=== PATIENT | female | born 1970 | race Hispanic/Latino ===

== ENCOUNTER 2017-11-19 17:28 | Emergency (ER) | payer SELFPAY ==
[2017-11-19 18:26] LABS: Absolute Lymphocytes (CBC) 1.3 K/uL (0.7-4.9); Absolute Monocytes 0.5 K/uL (0.1-1.3); Absolute Neutrophil 4.5 K/uL (1.8-8.0); Basophils % 0.9 % (0-1.3); Eosinophils % 1.1 % (0-4.4); Hematocrit 21.4 % (36.0-45.0); Lymphocytes % 20.6 % (15.3-44.8); MCH 20.8 pg (27.0-35.0); MCV 68.2 fL (80-100); MPV 9.1 fL (7.6-11.3); Monocytes % 7.5 % (3.3-12.3); RBC Red Blood Cell Count 3.14 M/uL (3.86-4.86)
[2017-11-19 18:27] LABS: Bicarbonate 23 mEq/L (21-31); Glucose Level 125 mg/dL (65-120); Potassium 3.3 mEq/L (3.6-5.0); Sodium Level 135 mEq/L (135-145)
[2017-11-19 18:28] LABS: BUN Blood Urea Nitrogen 14 mg/dL (6-20)
[2017-11-19 19:11] LABS: Urine Blood 2+ (NEG); Urine Glucose NEGATIVE (NEG); Urine Protein NEGATIVE (NEG); Urine Specific Gravity 1.025 (1.005-1.030)
[2017-11-19] MEDS ORDERED: ONDANSETRON 4 MG/2 ML VIAL ONE (19:12)
[2017-11-19] MEDS ORDERED: DIPHENHYDRAMINE 50 MG/ML VIAL ONE (19:12)
[2017-11-19] MEDS ORDERED: HYDROCORTISONE SUC 100 MG INJ ONE (19:12)
[2017-11-19] MEDS ORDERED: ACETAMINOPHEN 325 MG TABLET ONE (19:12)
[2017-11-19 19:23] LABS: Blood Morphology Comment NOTED (NOT SEEN); Hypochromasia 1+; Platelet Estimate ADEQ; Polychromasia 1+; Urine White Blood Cell Casts OK
[2017-11-19 19:24] LABS: Ovalocytes 1+
[2017-11-19] MEDS ORDERED: NA CHLORIDE 0.9% 250 ML ONE (19:27)
--- NOTE | 2017-11-19 20:09 | RAD REPORT ---
EXAM DESCRIPTION: US - Transvaginal Study Probe - 11/19/2017 7:40 pm CLINICAL HISTORY: Abdominal pain with vaginal bleeding COMPARISON: none FINDINGS: The uterus measures 8 x 5 x 5cm. A fibroid is not seen. The endometrial stripe measures 2. 4 centimeters. A 3.6 centimeter left ovarian cyst is present. The right ovary was not seen. . No significant free fluid is seen. IMPRESSION: Thickened endometrium. A followup pelvic ultrasound in a couple months is recommended to assess stability/ resolution 3.6 centimeter left ovarian cyst. This also can be monitored on the follow-up exam
--- NOTE | 2017-11-20 01:36 | EDPHYS ---
Physician Documentation [facility] Name: Aster Swain Age: 46 yrs Sex: Female : 1970 Arrival Date: 11/19/2017 Time: 17:29 Bed 5 Private MD: ED Physician Angel Bonilla HPI: 11/19 19:59 This 46 yrs old Female presents to ER via Ambulatory with complaints of jr8 Weakness, Dizziness, vaginal bleeding. 19:59 The patient presents with vaginal bleeding that is moderate, with clots. Onset: The jr8 symptoms/episode began/occurred gradually, 3 week(s) ago. Modifying factors: The symptoms are alleviated by nothing, the symptoms are aggravated by nothing. Associated signs and symptoms: Pertinent positives: weakness, dizziness, PITTS. Severity of symptoms: At their worst the symptoms were moderate, in the emergency department the symptoms are unchanged. The patient has not experienced similar symptoms in the past. The patient has been recently seen by a physician:. Recently saw PCP and was started on control. Stated that bleeding has decreased since then but still continues . 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 - Social history:: Smoking status: Patient/guardian denies using tobacco. ROS: 19:59 Eyes: Negative for injury, pain, redness, and discharge, ENT: Negative for injury, jr8 pain, and discharge, Neck: Negative for injury, pain, and swelling, Cardiovascular: Negative for chest pain, palpitations, and edema, Abdomen/GI: Negative for abdominal pain, nausea, vomiting, diarrhea, and constipation, Back: Negative for injury and pain, MS/Extremity: Negative for injury and deformity, Skin: Negative for injury, rash, and discoloration, Neuro: Negative for headache, weakness, numbness, tingling, and seizure. 19:59 Constitutional: Positive for fatigue. 19:59 Respiratory: Positive for dyspnea on exertion, Negative for cough, sputum production, wheezing. 19:59 : Positive for vaginal bleeding, menstrual abnormality. Exam: 19:59 Head/Face: Normocephalic, atraumatic. ENT: Nares patent. No nasal discharge, no jr8 septal abnormalities noted. Tympanic membranes are normal and external auditory canals are clear. Oropharynx with no redness, swelling, or masses, exudates, or evidence of obstruction, uvula midline. Mucous membranes moist. Neck: Trachea midline, no thyromegaly or masses palpated, and no cervical lymphadenopathy. Supple, full range of motion without nuchal rigidity, or vertebral point tenderness. No Meningismus. Cardiovascular: Regular rate and rhythm with a normal S1 and S2. No gallops, murmurs, or rubs. Normal PMI, no JVD. No pulse deficits. Respiratory: Lungs have equal breath sounds bilaterally, clear to auscultation and percussion. No rales, rhonchi or wheezes noted. No increased work of breathing, no retractions or nasal flaring. Abdomen/GI: Soft, non-tender, with normal bowel sounds. No distension or tympany. No guarding or rebound. No evidence of tenderness throughout. Back: No spinal tenderness. No costovertebral tenderness. Full range of motion. MS/ Extremity: Pulses equal, no cyanosis. Neurovascular intact. Full, normal range of motion. Neuro: Awake and alert, GCS 15, oriented to person, place, time, and situation. Cranial nerves II-XII grossly intact. Motor strength 5/5 in all extremities. Sensory grossly intact. Cerebellar exam normal. Normal gait. 19:59 Eyes: Periorbital structures: appear normal, Pupils: equal, round, and reactive to light and accomodation, Extraocular movements: intact throughout, Conjunctiva: pale, bilaterally, Sclera: no appreciated abnormality, Anterior chamber: normal, Lids and lashes: appear normal. 19:59 Skin: Appearance: Color: pale, Temperature: cool, Moisture: normal moisture, petechiae, not noted. Vital Signs: 17:41 BP 117 / 67; Pulse 76; Resp 18; Temp 97.8(TE); Pulse Ox 99% on R/A; Weight 66.22 kg; hj Height 5 ft. 3 in. (160.02 cm); Pain 7/10; 18:26 BP 123 / 73; Pulse 74; Resp 16; Pulse Ox 100% on R/A; tw2 20:09 BP 121 / 69; Pulse 75; Resp 16; Pulse Ox 100% on R/A; aa1 20:48 BP 121 / 71; Pulse 74; Resp 18; Pulse Ox 99% on R/A; aa1 22:00 BP 112 / 64; Pulse 79; Resp 18; Pulse Ox 100% on R/A; Pain 0/10; mg2 23:00 BP 111 / 62; Pulse 74; Resp 16; Pulse Ox 100% on R/A; aa1 05 00:53 BP 113 / 63; Pulse 65; Resp 18; Pulse Ox 100% on R/A; tl2 02:03 BP 106 / 65; Pulse 65; Resp 16; Pulse Ox 100% on R/A; Pain 0/10; mg2 11/19 17:41 Body Mass Index 25.86 (66.22 kg, 160.02 cm) hj MDM: 11/19 17:45 Patient medically screened. jr8 11/20 01:33 Data reviewed: vital signs, nurses notes, lab test result(s), and as a result, I will jr8 discharge patient. Data interpreted: Pulse oximetry: on room air is 100 %. Interpretation: normal. Counseling: I had a detailed discussion with the patient and/or guardian regarding: the historical points, exam findings, and any diagnostic results supporting the discharge/admit diagnosis, lab results, radiology results, the need for outpatient follow up, an OB/Gyne specialist, to return to the emergency department if symptoms worsen or persist or if there are any questions or concerns that arise at home. Response to treatment: the patient's symptoms have markedly improved after treatment. ED course: Patients Hemoglobin to reasonable level now. Patient feeling much better. Bleeding has slowed down. Has appointment with OB tomorrow. To come back if feeling worse again . 11/19 17:54 Order name: CBC with Diff; Complete Time: 19:56 [facility] 11/19 17:54 Order name: Basic Metabolic Panel; Complete Time: 18:30 [facility] 11/19 17:54 Order name: T\T\S [facility] 11/19 18:23 Order name: Urine Dipstick--Ancillary (enter results); Complete Time: 19:13 ag 11/19 18:23 Order name: Urine --Ancillary (enter results); Complete Time: 19:13 ag 11/19 18:37 Order name: CBC Smear Scan; Complete Time: 19:56 [facility] 11/19 17:54 Order name: Urine Test (obtain specimen); Complete Time: 18:23 [facility] 11/19 18:42 Order name: Bb Add On ag 11/19 18:52 Order name: ABO/RH no charge; Complete Time: 18:59 [facility] 11/19 18:59 Order name: Packed RBC Leukored -1 [facility] 11/19 19:11 Order name: US Transvaginal Study (Probe); Complete Time: 20:20 [facility] 11/20 00:24 Order name: Hemoglobin: draw at 0100; Complete Time: 01:38 tl2 11/19 17:54 Order name: Urine Dipstick-Ancillary (obtain specimen); Complete Time: 18:23 jr8 Administered Medications: 11/19 21:09 Not Given (Patient Refused): Zofran 4 mg IVP once; over 2 minutes tl2 Disposition: 11/20/17 01:35 Discharged to Home. Impression: Acute anemia, Abnormal uterine and vaginal bleeding, unspecified, Menorrhagia . - Condition is Stable. - Discharge Instructions: Abnormal Uterine Bleeding, Iron Deficiency Anemia, Adult. - Medication Reconciliation Form, Thank You Letter, Antibiotic Education, Prescription Opioid Use form. - Follow up: Private Physician; When: Today; Reason: Recheck today's complaints, Continuance of care, Re-evaluation by your physician. - Problem is new. - Symptoms have improved. Addendum: 12/05/2017 21:54 Co-signature as Attending Physician, Angel Bonilla MD. g s Signatures: Dispatcher [employer] [facility] Mariano Lane PA PA jr8 Matt Corbin RN RN Jaimie Hawkins RN RN tw2 Angel Bonilla MD MD Saul Arenas RN RN [facility] Amy Cintron RN tl2 Corrections: (The following items were deleted from the chart) 11/19 19:15 19:00 Transvaginal Ob+US.RAD.BRZ ordered. [facility] 11/20 01:36 01:35 11/20/2017 01:35 Discharged to Home. Impression: Acute anemia; Abnormal uterine jr8 and vaginal bleeding, unspecified. Condition is Stable. Forms are Medication Reconciliation Form, Thank You Letter, Antibiotic Education, Prescription Opioid Use. Follow up: Private Physician; When: Today; Reason: Recheck today's complaints, Continuance of care, Re-evaluation by your physician. Problem is new. Symptoms have improved. jr8 02:05 01:36 11/20/2017 01:35 Discharged to Home. Impression: Acute anemia; Abnormal uterine mg2 and vaginal bleeding, unspecified; Menorrhagia . Condition is Stable. Forms are Medication Reconciliation Form, Thank You Letter, Antibiotic Education, Prescription Opioid Use. Follow up: Private Physician; When: Today; Reason: Recheck today's complaints, Continuance of care, Re-evaluation by your physician. Problem is new. Symptoms have improved. jr8
--- NOTE | 2017-11-20 01:36 | ER ---
Nurse's Notes [facility] Name: Aster Swain Age: 46 yrs Sex: Female : 1970 Arrival Date: 11/19/2017 Time: 17:29 Bed 5 Private MD: Diagnosis: Acute anemia;Abnormal uterine and vaginal bleeding, unspecified;Menorrhagia Presentation: 11/19 17:38 Presenting complaint: Patient states: i fell dizzy starting 2 weeks ago; i had my hj period for 3 weeks and still heavy; denies nausea; reports vomiting; reports headache;. Transition of care: patient was not received from another setting of care. Onset of symptoms was November 19, 2017. Initial Sepsis Screen: Does the patient meet any 2 criteria? No. Patient's initial sepsis screen is negative. Does the patient have a suspected source of infection? No. Patient's initial sepsis screen is negative. Care prior to arrival: None. 17:38 Method Of Arrival: Ambulatory 17:38 Acuity: SEBLE 3 hj Triage Assessment: 17:40 General: Appears in no apparent distress. uncomfortable, Behavior is calm, cooperative, hj appropriate for age. Pain: Complains of pain in head. 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 - Social history:: Smoking status: Patient/guardian denies using tobacco. Screenin:22 Abuse screen: Denies threats or abuse. Nutritional screening: No deficits noted. tw2 Tuberculosis screening: No symptoms or risk factors identified. Fall Risk None identified. Assessment: 18:00 General: Appears in no apparent distress. slender, well groomed, Behavior is calm, tw2 cooperative, appropriate for age. Pain: Denies pain. Neuro: Level of Consciousness is awake, alert, obeys commands, Oriented to person, place, time, situation. Cardiovascular: Denies chest pain, shortness of breath, Heart tones S1 S2 Capillary refill < 3 seconds Patient's skin is warm and dry. Respiratory: Airway is patent Respiratory effort is even, unlabored, Respiratory pattern is regular, symmetrical, Breath sounds are clear bilaterally. GI: No signs and/or symptoms were reported involving the gastrointestinal system. Abdomen is flat, Bowel sounds present X 4 quads. : Reports vaginal bleeding that is bright red, heavy flow for 3 weeks. EENT: No signs and/or symptoms were reported regarding the EENT system. Derm: Skin is intact, is healthy with good turgor, Skin is pale. Musculoskeletal: Range of motion: intact in all extremities. 19:10 Reassessment: Pt stated she was nauseated but denied wanting medication. Medication tl2 ordered per PA. 19:20 Reassessment: Pt out to US, will sent blood slips when pt returns to room. General: tl2 Appears in no apparent distress. uncomfortable, Behavior is calm, cooperative, appropriate for age. General:. Pain: Denies pain. Neuro: Level of Consciousness is awake, alert, obeys commands, Oriented to person, place, time, situation. Neuro: Reports weakness. Cardiovascular: Denies chest pain, shortness of breath, Heart tones S1 S2 present. Respiratory: Airway is patent Respiratory effort is even, unlabored, Respiratory pattern is regular, symmetrical. : Reports vaginal bleeding that is bright red, heavy flow. Derm: Skin is intact, Skin is pale. Musculoskeletal: Range of motion: intact in all extremities. 20:17 Reassessment: blood transfusion started at 1999, see transfusion flowsheet for vitals. tl2 Pt states she is feeling fine after first 15 minutes. Encouraged to notify me if experiencing any symptoms. 21:05 Reassessment: Patient appears in no apparent distress at this time. Patient and/or tl2 family updated on plan of care and expected duration. Pain level reassessed. Patient is alert, oriented x 3, equal unlabored respirations, skin warm/dry/pink. PA states that we will infuse both units of blood, recheck H\T\H 2 hours post transfusion and evaluate for discharge. 22:48 Reassessment: Patient appears in no apparent distress at this time. Patient and/or tl2 family updated on plan of care and expected duration. Pain level reassessed. Patient is alert, oriented x 3, equal unlabored respirations, skin warm/dry/pink. Skin color is improving. 23:41 Reassessment: Patient appears in no apparent distress at this time. Patient and/or tl2 family updated on plan of care and expected duration. Pain level reassessed. Patient is alert, oriented x 3, equal unlabored respirations, skin warm/dry/pink. Will redraw CBC at 0100. Second unit completed at 2340. Patient states feeling better. 11/20 00:24 Reassessment: ambulated pt in room, pt denies dizziness and states she feels better. Pt tl2 states that pad she put on when she arrived to ER was not saturated and she reports decreased bleeding. 00:53 Reassessment: Patient appears in no apparent distress at this time. Patient and/or tl2 family updated on plan of care and expected duration. Pain level reassessed. Patient is alert, oriented x 3, equal unlabored respirations, skin warm/dry/pink. Patient states feeling better. Reassessment: awaiting Hgb level. Derm: Skin is pink, warm \T\ dry. 02:03 Reassessment: Patient appears in no apparent distress at this time. Patient and/or mg2 family updated on plan of care and expected duration. Pain level reassessed. Patient is alert, oriented x 3, equal unlabored respirations, skin warm/dry/pink. Pt verbalized understanding of discharge instructions, need for follow up with OBGYN. Pt was ambulatory out of ER with no issue Patient states feeling better. Vital Signs: 11/19 17:41 BP 117 / 67; Pulse 76; Resp 18; Temp 97.8(TE); Pulse Ox 99% on R/A; Weight 66.22 kg; hj Height 5 ft. 3 in. (160.02 cm); Pain 7/10; 18:26 BP 123 / 73; Pulse 74; Resp 16; Pulse Ox 100% on R/A; tw2 20:09 BP 121 / 69; Pulse 75; Resp 16; Pulse Ox 100% on R/A; aa1 20:48 BP 121 / 71; Pulse 74; Resp 18; Pulse Ox 99% on R/A; aa1 22:00 BP 112 / 64; Pulse 79; Resp 18; Pulse Ox 100% on R/A; Pain 0/10; mg2 23:00 BP 111 / 62; Pulse 74; Resp 16; Pulse Ox 100% on R/A; aa1 11/20 00:53 BP 113 / 63; Pulse 65; Resp 18; Pulse Ox 100% on R/A; tl2 02:03 BP 106 / 65; Pulse 65; Resp 16; Pulse Ox 100% on R/A; Pain 0/10; mg2 11/19 17:41 Body Mass Index 25.86 (66.22 kg, 160.02 cm) ED Course: 11/19 17:29 Patient arrived in ED. sb2 17:40 Triage completed. hj 17:41 Arm band placed on left wrist. hj 17:42 Placed in gown. Bed in low position. Side rails up X2. Pulse ox on. NIBP on. Warm tw2 blanket given. 17:[address] PA is PHCP. jr8 17:45 Angel Bonilla MD is Attending Physician. jr8 17:45 Jaimie Hawkins RN is Primary Nurse. tw2 18:10 No provider procedures requiring assistance completed. Inserted saline lock: 20 gauge tw2 in left antecubital area, using aseptic technique. Blood collected. 19:02 Primary Nurse role handed off by Jaimie Hawkins RN tw2 19:02 Report given to RAVINDRA Reyes. tw2 19:19 Amy Cintron RN is Primary Nurse. tl2 19:37 Ultrasound completed. cy 19:40 US Transvaginal Study (Probe) In Process Unspecified. EDMS 11/20 01:06 Hemoglobin: draw at 0100 Sent. mg2 02:03 IV discontinued, intact, bleeding controlled, No redness/swelling at site. Pressure mg2 dressing applied. Administered Medications: 11/19 21:09 Not Given (Patient Refused): Zofran 4 mg IVP once; over 2 minutes tl2 Medication: 23:42 Blood products: PRBCs X 2 units given. See transfusion record first unit started at tl2 1999 and finished at 2142. Second unit started at 2148 and finished at 2340. Outcome: 11/20 01:35 Discharge ordered by . jr8 02:03 Discharged to home ambulatory, with family. mg2 02:03 Condition: stable 02:03 Discharge instructions given to patient, Instructed on discharge instructions, follow up and referral plans. Demonstrated understanding of instructions, follow-up care. 02:05 Patient left the ED. mg2 Signatures: Dispatcher [employer] EDMO Anel Hinojosa RN RN aa1 Mariano Lane PA PA jr8 Matt Corbin RN RN Jaimie Hawkins RN RN tw2 Amy Cintron RN RN tl2 Marlen Sunshine Sheri 2 Saul Arenas RN RN mg2 Corrections: (The following items were deleted from the chart) 11/19 17:43 17:41 Pulse 76bpm; Resp 18bpm; Pulse Ox 99% RA; Temp 97.8F Temporal; 66.22 kg; Height 5 hj ft. 3 in.; BMI: 25.8; Pain 7/10; hj 23:43 20:00 Blood products: PRBCs X 1 unit given. tl2 tl2
== END 2017-11-20 02:05 | disposition home or self-care (01) ==
LOC: ER 17:28
PROC: 30233N1 Transfusion of Nonautologous Red Blood Cells into Peripheral Vein, Percutaneous Approach (ICD-10-PCS; principal; 2017-11-20)
DX: D64.9 Anemia, unspecified (principal); N92.0 Excessive and frequent menstruation with regular cycle
CPT/HCPCS: 36415; 36430; 76830; 80048; 81003; 81025; 85018; 85025; 86850; 86900; 86901; 99284; J1720; J2405; P9016

== ENCOUNTER 2017-11-21 21:54 | Emergency (ER) | payer SELFPAY ==
[2017-11-21 22:50] LABS: Absolute Lymphocytes (CBC) 2.3 K/uL (0.7-4.9); Absolute Monocytes 0.6 K/uL (0.1-1.3); Absolute Neutrophil 4.5 K/uL (1.8-8.0); Eosinophils % 1.5 % (0-4.4); Hematocrit 28.7 % (36.0-45.0); Lymphocytes % 30.3 % (15.3-44.8); MCH 23.1 pg (27.0-35.0); MCV 72.3 fL (80-100); MPV 9.1 fL (7.6-11.3); Monocytes % 7.4 % (3.3-12.3); RBC Red Blood Cell Count 3.97 M/uL (3.86-4.86)
[2017-11-21] MEDS ORDERED: DIAZEPAM 2 MG TABLET ONE (22:52)
[2017-11-21 23:07] LABS: Bicarbonate 22 mEq/L (21-31); Glucose Level 107 mg/dL (65-120); Potassium 3.5 mEq/L (3.6-5.0); Protime INR 0.95; Sodium Level 142 mEq/L (135-145)
[2017-11-21 23:13] LABS: ALT/SGPT 14 IU/L (10-60); AST/SGOT 20 IU/L (10-42); Alkaline Phosphatase 49 IU/L (42-121); BUN Blood Urea Nitrogen 12 mg/dL (6-20); Bilirubin Direct < 0.1 mg/dL (0-0.2); Bilirubin Total 0.3 mg/dL (0.3-1.2); Protein, Total 7.1 g/dL (6.0-8.3)
[2017-11-21 23:23] LABS: Anisocytosis 1+; Blood Morphology Comment NOTED (NOT SEEN); Hypochromasia 1+; Platelet Estimate ADEQ; Urine White Blood Cell Casts OK
[2017-11-21 23:24] LABS: Ovalocytes 2+
[2017-11-22 00:20] LABS: Urine Blood TRACE (NEG); Urine Glucose NEGATIVE (NEG); Urine Protein NEGATIVE (NEG); Urine Specific Gravity 1.015 (1.005-1.030); Urine pH 7.5 (5.0-7.0)
--- NOTE | 2017-11-22 01:46 | ER ---
Nurse's Notes [facility] Name: Aster Swain Age: 46 yrs Sex: Female : 1970 Arrival Date: 11/21/2017 Time: 21:55 Bed 18 Private MD: Diagnosis: Chest pain, unspecified;Hyperventilation Presentation: 11/21 22:09 Presenting complaint: Patient states: Chest pain and SOB that started today. Patient aj seen in this ER 2 days ago and given 2 units PRBC for irregular uterine bleeding. Patient given depo shot yesterday, reports bleeding has stopped. Transition of care: patient was not received from another setting of care. Onset of symptoms was November 21, 2017. Initial Sepsis Screen: Does the patient meet any 2 criteria? No. Patient's initial sepsis screen is negative. Does the patient have a suspected source of infection? No. Patient's initial sepsis screen is negative. Care prior to arrival: None. 22:09 Method Of Arrival: Wheelchair aj 22:09 Acuity: SEBLE 2 aj Triage Assessment: 22:11 General: Appears in no apparent distress. uncomfortable, Behavior is calm, cooperative, aj appropriate for age. Pain: Complains of pain in chest. Neuro: Level of Consciousness is awake, alert, obeys commands, Oriented to person, place, time, situation, Appropriate for age. Cardiovascular: Reports chest pain, shortness of breath. Respiratory: Reports shortness of breath at rest pain with respiration Airway is patent Trachea midline Respiratory effort is even, unlabored, Respiratory pattern is symmetrical, tachypnea. Derm: Skin is intact, is healthy with good turgor, Skin is pink, warm \T\ dry. normal. 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 - Family history:: not pertinent. - Social history:: Smoking status: unknown. - Hospitalizations: : No recent hospitalization is reported. Screenin:40 Abuse screen: Denies threats or abuse. Nutritional screening: No deficits noted. jd3 Tuberculosis screening: No symptoms or risk factors identified. Fall Risk IV access (20 points). Mental Status- Oriented to own ability (0 pts). Total Vasques Fall Scale indicates No Risk (0-24 pts). Assessment: 22:37 General: Appears uncomfortable, Behavior is cooperative, appropriate for age, anxious. jd3 Pain: Complains of pain in chest Pain does not radiate. Quality of pain is described as pressure, Pain began 4 hours ago. Neuro: Level of Consciousness is awake, alert, obeys commands, Oriented to person, place, time, situation. Cardiovascular: Heart tones S1 S2 present Capillary refill < 3 seconds Patient's skin is warm and dry. Rhythm is regular Chest pain is described as diffuse, quality is pressure, began 4 hours prior to arrival. Respiratory: Reports shortness of breath at rest Airway is patent Respiratory effort is even, unlabored, Respiratory pattern is regular, symmetrical, Breath sounds are clear bilaterally. GI: Abdomen is round Bowel sounds present X 4 quads. Abd is soft and non tender X 4 quads. Reports nausea. : No signs and/or symptoms were reported regarding the genitourinary system. EENT: No signs and/or symptoms were reported regarding the EENT system. Derm: Skin is intact, Skin is diaphoretic, Skin is normal, Skin temperature is warm. Musculoskeletal: Circulation, motion, and sensation intact. Range of motion: intact in all extremities. 23:40 Reassessment: Patient appears in no apparent distress at this time. Patient and/or jd3 family updated on plan of care and expected duration. Pain level reassessed. Patient is alert, oriented x 3, equal unlabored respirations, skin warm/dry/pink. pt resting in bed with eyes closed even and unlabored respirations, call light in reach, no signs of distress noted at this time. family at bedside. 11/22 00:50 Reassessment: Patient appears in no apparent distress at this time. Patient and/or jd3 family updated on plan of care and expected duration. Pain level reassessed. Patient is alert, oriented x 3, equal unlabored respirations, skin warm/dry/pink. provider at bedside discussing plan of care. Patient states feeling better. 01:33 Reassessment: Patient appears in no apparent distress at this time. Patient and/or jd3 family updated on plan of care and expected duration. Pain level reassessed. Patient is alert, oriented x 3, equal unlabored respirations, skin warm/dry/pink. Patient states feeling better. 02:33 Reassessment: Patient appears in no apparent distress at this time. Patient and/or jd3 family updated on plan of care and expected duration. Pain level reassessed. Patient is alert, oriented x 3, equal unlabored respirations, skin warm/dry/pink. Patient states feeling better. 02:40 Reassessment: Patient appears in no apparent distress at this time. Patient and/or jd3 family updated on plan of care and expected duration. Pain level reassessed. Patient is alert, oriented x 3, equal unlabored respirations, skin warm/dry/pink. pt reported understanding of discharge instructions, even and steady gait upon discharge. Vital Signs: 11/21 22:11 BP 138 / 78; Pulse 73; Resp 24; Temp 98.9; Pulse Ox 100% on R/A; Weight 66.22 kg; aj Height 5 ft. 3 in. (160.02 cm); Pain 5/10; 23:59 BP 110 / 67; Pulse 63; Resp 13 S; Pulse Ox 100% on R/A; jd3 0511 00:50 BP 109 / 64; Pulse 69; Resp 15 S; Pulse Ox 100% on R/A; jd3 01:32 BP 111 / 63; Pulse 61; Resp 16 S; Pulse Ox 100% on R/A; Pain 0/10; jd3 02:32 BP 106 / 64; Pulse 58; Resp 16 S; Pulse Ox 100% on R/A; Pain 0/10; jd3 11/21 22:11 Body Mass Index 25.86 (66.22 kg, 160.02 cm) ED Course: 11/21 21:55 Patient arrived in ED. al2 22:10 Triage completed. aj 22:11 Arm band placed on right wrist. Patient placed in an exam room. aj 22:15 Sadiq Chavez MD is Attending Physician. rn 22:25 EKG done, by ED staff, reviewed by Sadiq Chavez MD. cc 22:30 Initial lab(s) drawn, by mt, sent to lab. Inserted saline lock: 20 gauge in left cc antecubital area, using aseptic technique. Blood collected. 22:37 Bishnu Gomez RN is Primary Nurse. jd3 22:39 Patient maintains SpO2 saturation greater than 95% on room air. jd3 22:40 Patient has correct armband on for positive identification. Placed in gown. Bed in low jd3 position. Call light in reach. Side rails up X2. Adult w/ patient. 22:40 staffing consultant on. Pulse ox on. NIBP on. jd3 22:44 XRAY Chest (1 view) In Process Unspecified. EDMS 05 00:16 CT Chest For PE Angio In Process Unspecified. EDMS 02:39 No provider procedures requiring assistance completed. IV discontinued, intact, jd3 bleeding controlled, No redness/swelling at site. Pressure dressing applied. Administered Medications: 11/21 23:05 Drug: Valium 2 mg Route: PO; jd3 11/22 02:41 Follow up: Response: No adverse reaction; Marked relief of symptoms jd3 Outcome: 01:45 Discharge ordered by . rn 02:39 Discharged to home ambulatory, with family. jd3 02:39 Condition: stable 02:39 Discharge instructions given to patient, Instructed on discharge instructions, follow up and referral plans. medication usage, Demonstrated understanding of instructions, follow-up care, medications, Prescriptions given X 1. 02:41 Patient left the ED. jd3 Signatures: Dispatcher [employer] Jes Lopez RN RN aj Nieto, Roman, MD MD rn Christian, Chelsea cc Davies, Jonathon, RN RN jd3 Love, Angelica al2
--- NOTE | 2017-11-22 01:46 | EDPHYS ---
Physician Documentation [facility] Name: Aster Swain Age: 46 yrs Sex: Female : 1970 Arrival Date: 11/21/2017 Time: 21:55 Bed 18 Private MD: ED Physician Sadiq Chavez HPI: 11/21 23:37 This 46 yrs old Female presents to ER via Wheelchair with complaints of Chest rn Pain, Breathing Difficulty. 23:37 The patient or guardian reports chest pain that is located primarily in the chest rn diffusely. Onset: 2 hour(s) ago. The pain does not radiate. Associated signs and symptoms: Pertinent positives: lightheadedness, palpitations, shortness of breath. The chest pain is described as a heaviness. Duration: The patient or guardian reports multiple episodes, that are intermittent. Severity of pain: At its worst the pain was moderate in the emergency department the pain is unchanged. The patient has not experienced similar symptoms in the past. Recently transfused for anemia from vaginal bleeding, given depot shot recently, presents with 2 hours of chest pain and sob, never had this before, reports making her feel anxious. No fever/cough. . 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 - Family history:: not pertinent. - Social history:: Smoking status: unknown. - Hospitalizations: : No recent hospitalization is reported. ROS: 23:37 Constitutional: Negative for fever, chills, and weight loss, Eyes: Negative for injury, rn pain, redness, and discharge, Cardiovascular: Negative for palpitations, and edema, Respiratory: Negative for cough, wheezing Abdomen/GI: Negative for abdominal pain, nausea, vomiting, diarrhea, and constipation, MS/Extremity: Negative for injury and deformity, Skin: Negative for injury, rash, and discoloration, Neuro: Negative for headache, weakness, numbness, tingling, and seizure. Exam: 23:37 Constitutional: This is a well developed, well nourished patient who is awake, alert, rn appears anxious and hyperventilating Head/Face: Normocephalic, atraumatic. Eyes: Pupils equal round and reactive to light, extra-ocular motions intact. Lids and lashes normal. Conjunctiva and sclera are non-icteric and not injected. Cornea within normal limits. Periorbital areas with no swelling, redness, or edema. Neck: Trachea midline, no thyromegaly or masses palpated, and no cervical lymphadenopathy. Supple, full range of motion without nuchal rigidity, or vertebral point tenderness. No Meningismus. Cardiovascular: Regular rate and rhythm with a normal S1 and S2. No gallops, murmurs, or rubs. Normal PMI, no JVD. No pulse deficits. Respiratory: clear bilaterally, + mild tachypnea, no retractions Abdomen/GI: Soft, non-tender, with normal bowel sounds. No distension or tympany. No guarding or rebound. No evidence of tenderness throughout. Skin: Warm, dry with normal turgor. Normal color with no rashes, no lesions, and no evidence of cellulitis. MS/ Extremity: Pulses equal, no cyanosis. Neurovascular intact. Full, normal range of motion. Equal circumference. Neuro: Awake and alert, GCS 15, oriented to person, place, time, and situation. Cranial nerves II-XII grossly intact. Motor strength 5/5 in all extremities. Sensory grossly intact. Vital Signs: 22:11 BP 138 / 78; Pulse 73; Resp 24; Temp 98.9; Pulse Ox 100% on R/A; Weight 66.22 kg; aj Height 5 ft. 3 in. (160.02 cm); Pain 5/10; 23:59 BP 110 / 67; Pulse 63; Resp 13 S; Pulse Ox 100% on R/A; jd3 11/22 00:50 BP 109 / 64; Pulse 69; Resp 15 S; Pulse Ox 100% on R/A; jd3 01:32 BP 111 / 63; Pulse 61; Resp 16 S; Pulse Ox 100% on R/A; Pain 0/10; jd3 02:32 BP 106 / 64; Pulse 58; Resp 16 S; Pulse Ox 100% on R/A; Pain 0/10; jd3 11/21 22:11 Body Mass Index 25.86 (66.22 kg, 160.02 cm) aj MDM: 11/21 22:15 Patient medically screened. rn 11/22 01:01 ED course: Pt feels much better after valium, offered observation for chest pain rule rn out, patient prefers to go home, will repeat trop and if normal dc home, pt and state this happens about once a year, gets better, has been evaluated before and possibly anxiety. Given her emotional response, hyperventilation, and improvement with valium and lack of findings in radiologic and laboratory evaluation, very likely that it is hyperventilation/anxiety. . 01:40 Differential diagnosis: anxiety, coronary artery disease chest wall pain, rn costochondritis, gastritis, gastroesophageal reflux disease (GERD), pericarditis, pleurisy, pneumothorax, pulmonary embolus. Data reviewed: vital signs, nurses notes, lab test result(s), EKG, radiologic studies, CT scan, plain films, and as a result, I will discharge patient. Counseling: I had a detailed discussion with the patient and/or guardian regarding: the historical points, exam findings, and any diagnostic results supporting the discharge/admit diagnosis, lab results, radiology results, the need for outpatient follow up, to return to the emergency department if symptoms worsen or persist or if there are any questions or concerns that arise at home. Response to treatment: the patient's symptoms have markedly improved after treatment, and as a result, I will discharge patient. Special discussion: I discussed with the patient/guardian in detail that at this point there is no indication for admission to the hospital. It is understood, however, that if the symptoms persist or worsen the patient needs to return immediately for re-evaluation. 11/21 22:22 Order name: Basic Metabolic Panel rn 11/21 22:22 Order name: BNP; Complete Time: 00:39 rn 11/21 22:22 Order name: CBC with Diff; Complete Time: 00:39 rn 11/21 22:22 Order name: LFT's; Complete Time: 23:14 rn 11/21 22:22 Order name: Magnesium; Complete Time: 23:14 rn 11/21 22:22 Order name: PT-INR; Complete Time: 23:14 rn 11/21 22:22 Order name: Ptt, Activated; Complete Time: 23:14 rn 11/21 22:22 Order name: Troponin (emerg Dept Use Only); Complete Time: 00:39 rn 11/21 22:22 Order name: D-Dimer; Complete Time: 23:14 rn 11/21 22:23 Order name: Basic Metabolic Panel; Complete Time: 23:14 EDNC 11/21 22:55 Order name: CBC Smear Scan; Complete Time: 00:39 EDNC 11/21 23:35 Order name: Urine Dipstick--Ancillary (enter results); Complete Time: 00:39 em1 11/21 23:35 Order name: Urine --Ancillary (enter results); Complete Time: 00:39 em1 11/22 00:40 Order name: Troponin (emerg Dept Use Only) rn 11/21 22:22 Order name: Urine Test (obtain specimen); Complete Time: 23:32 rn 11/21 22:22 Order name: XRAY Chest (1 view) rn 11/21 22:22 Order name: EKG; Complete Time: 22:23 rn 11/21 22:22 Order name: Cardiac monitoring; Complete Time: 22:35 rn 11/21 22:22 Order name: EKG - Nurse/Tech; Complete Time: 22:35 rn 11/21 22:22 Order name: IV Saline Lock; Complete Time: 22:35 rn 11/21 22:22 Order name: Labs collected and sent; Complete Time: 22:35 rn 11/21 22:22 Order name: O2 Per Protocol; Complete Time: 22:35 rn 11/21 22:22 Order name: O2 Sat Monitoring; Complete Time: 22:35 rn 11/21 22:22 Order name: Urine Dipstick-Ancillary (obtain specimen); Complete Time: 23:33 rn 11/21 23:15 Order name: CT Chest For PE Angio rn Administered Medications: 11/21 23:05 Drug: Valium 2 mg Route: PO; jd3 11/22 02:41 Follow up: Response: No adverse reaction; Marked relief of symptoms jd3 Disposition: 11/22/17 01:45 Discharged to Home. Impression: Chest pain, unspecified, Hyperventilation. - Condition is Stable. - Discharge Instructions: Nonspecific Chest Pain, Hyperventilation. - Prescriptions for Valium 2 mg Oral Tablet - take 1 tablet by ORAL route one time As needed Moderate to severe hyperventilation; 10 tablet. - Medication Reconciliation Form, Thank You Letter, Antibiotic Education, Prescription Opioid Use form. - Follow up: Private Physician; When: As needed; Reason: Recheck today's complaints, Re-evaluation by your physician. - Problem is new. - Symptoms have improved. Signatures: Dispatcher [employer] Jes Lopez RN RN aj Nieto, Roman, MD MD rn Davies, Jonathon, RN RN jd3 Corrections: (The following items were deleted from the chart) 02:41 01:45 11/22/2017 01:45 Discharged to Home. Impression: Chest pain, unspecified; jd3 Hyperventilation. Condition is Stable. Forms are Medication Reconciliation Form, Thank You Letter, Antibiotic Education, Prescription Opioid Use. Follow up: Private Physician; When: As needed; Reason: Recheck today's complaints, Re-evaluation by your physician. Problem is new. Symptoms have improved. rn
--- NOTE | 2017-11-22 08:09 | RAD REPORT ---
EXAM DESCRIPTION: RAD - Chest Single View - 11/21/2017 10:44 pm CLINICAL HISTORY: Chest pain. COMPARISON: 03/28/2016 FINDINGS: Portable technique limits examination quality. The lungs are grossly clear. The heart is normal in size. No displaced fractures. IMPRESSION: No acute intrathoracic process suspected.
--- NOTE | 2017-11-22 08:14 | RAD REPORT ---
EXAM DESCRIPTION: CT - Chest For Pe Angio - 11/22/2017 6:30 am CLINICAL HISTORY: Chest pain. COMPARISON: None. TECHNIQUE: CT angiogram of the pulmonary arteries was performed with MIP. All CT scans are performed using dose optimization technique as appropriate and may include automated exposure control or mA/KV adjustment according to patient size. FINDINGS: No evidence of pulmonary thromboembolism. No acute aortic finding demonstrated. The lungs are clear. No significant pericardial or pleural fluid. No concerning bony finding. IMPRESSION: No evidence of pulmonary thromboembolism. No acute lung findings.
--- NOTE | 2017-11-22 10:28 | EKG ---
Test Date: 2017-11-21 Test Time: 22:17:33 Associate Professor Of Chemistry: LARON MEASUREMENT RESULTS: Intervals: Rate: 82 DE: 144 QRSD: 78 QT: 370 QTc: 432 [place]: P: 53 DE: 144 QRS: 61 T: 50 INTERPRETIVE STATEMENTS: Normal sinus rhythm Normal ECG Compared to ECG 03/28/2016 01:42:31 No significant changes Electronically Signed On 11-22-17 10:27:09 CDT by Clifton Law
== END 2017-11-22 02:41 | disposition home or self-care (01) ==
LOC: ER 21:54
DX: R06.4 Hyperventilation (principal)
CPT/HCPCS: 36415; 71045; 71275; 80048; 80076; 81003; 81025; 83735; 83880; 84484; 85025; 85379; 85610; 85730; 93005; 99285; Q9967